=== PATIENT | female | born 1955 | race African-American/Black ===

== ENCOUNTER 2021-01-16 14:48 | Inpatient (IN) | payer MEDICARE, OTHER ==
[~2021-01-16] VITALS: Ht 167.6 cm; Wt 88.9 kg
[2021-01-16 16:21] LABS: HEMOGLOBIN. 15.1 g/dL (12.0-16.0); MEAN CORPUSCULAR HEMOGLOBIN 29.6 pg (28.0-32.0); MEAN PLATELET VOLUME 10.1 fl (7.4-10.4); PLATELET 180 x1000/uL (130-400); RED BLOOD CELL COUNT 5.11 mill/uL (4.2-5.4); RED CELL DISTRIBUTION WIDTH 15.6 % (11.6-14.6)
[2021-01-16 16:26] LABS: CHLORIDE 94 mEq/L (98-107)
[2021-01-16 16:30] LABS: INR 1.4; PROTHROMBIN TIME 14.2 sec (9.6-11.0)
[2021-01-16] MEDS ORDERED: SODIUM CHLORIDE 0.45% 1,000 ML IV SCH ×2 (16:30→19:30)
[2021-01-16] MEDS ORDERED: SODIUM CHLORIDE 0.9% 1,000 ML IV ONE (17:00)
[2021-01-16] MEDS ORDERED: PIPERACILLIN/TAZ 3.375G PREMIX 50 ML IV ONE (17:15)
[2021-01-16] MEDS ORDERED: PANTOPRAZOLE SODIUM 40 MG/VIAL IV ONE (17:15)
[2021-01-16] MEDS ORDERED: PHENYTOIN SODIUM 100MG/2ML VIAL IV ONE ×2 (17:30→17:59)
[2021-01-16 17:42] LABS: CLARITY URINE CLOUDY (CLEAR); COLOR URINE ORANGE (YELLOW); KETONES URINE TRACE (NEGATIVE); LEUKOCYTE ESTERASE URINE 1+ (NEGATIVE); NITRITE URINE POSITIVE (NEGATIVE); OCCULT BLOOD URINE NEGATIVE (NEGATIVE); PROTEIN URINE 1+ (NEGATIVE); SPECIFIC GRAVITY URINE 1.019 (1.005-1.030)
[2021-01-16 17:44] LABS: PLATELET ESTIMATE NORMAL
[2021-01-16] MEDS ORDERED: MORPHINE SULFATE 2 MG/ML CPJ (NOT FOR IM USE) IV PRN ×2 (17:45→19:00)
[2021-01-16] MEDS ORDERED: ONDANSETRON HCL 4MG/2ML INJ IV PRN (17:45)
[2021-01-16] MEDS ORDERED: PHENYTOIN SODIUM 300MG in SODIUM CHLORIDE 0.9% 50ML IV NR (18:00)
[2021-01-16] MEDS ORDERED: POTASSIUM CHLORIDE 40MEQ/20ML INJ IV ONE (19:04)
[2021-01-16] MEDS ORDERED: ALBUMIN HUMAN 25GM/100ML (25%) IV ONE (19:04)
[2021-01-16] MEDS ORDERED: MAGNESIUM SULFATE 5GM/10ML VIAL IV ONE (19:04)
[2021-01-16] MEDS ORDERED: SODIUM BICARBONATE 8.4% 1 MEQ/ML 50ML SYR IV ONE (19:05)
[2021-01-16] MEDS ORDERED: CALCIUM CHLORIDE 1GM/10ML SYR IV ONE (19:05)
[2021-01-16] MEDS ORDERED: DEXTROSE 50% WATER 50ML SYRINGE IV PRN ×2 (19:15→23:30)
[2021-01-16] MEDS ORDERED: PROPOFOL 200MG/20ML VIAL IV ONE (19:17)
[2021-01-16] MEDS ORDERED: ROCURONIUM BROMIDE 10MG/ML VIAL 5ML IV ONE (19:17)
[2021-01-16] MEDS ORDERED: DEXAMETHASONE 4MG/ML 1ML VIAL ONE (19:18)
[2021-01-16] MEDS ORDERED: DEXT 5%/0.45% NACL KCL 20MEQ/L 1,000 ML IV SCH (19:30)
[2021-01-16] MEDS ORDERED: POTASSIUM CHLORIDE INJ 40 MEQ in DEXT 5% WATER 250 ML IV ONE (20:00)
[2021-01-16 20:13] LABS: BG BASE EXCESS 0.1 mmol/L (-2.0-2.0); BG CARBOXYHEMOGLOBIN 0.7 % (0.5-1.5); BG DEOXYHEMOGLOBIN 11.4 % (0.0-5.0); BG FRACTION INSPIRED OXYGEN 100; BG METHEMOGLOBIN 0.4 % (0.0-1.5); BG OXYGEN SATURATION 88.5 % (92.0-98.5); BG OXYHEMOGLOBIN 87.5 % (94.0-97.0); BG PCO2 36.4 mmHg (35.0-45.0); BG PH 7.437 (7.350-7.450); BG PO2 57.3 mmHg (75.0-100.0); BG TOTAL HEMOGLOBIN 11.2 g/dL (12.0-18.0); BG VENT MODE VENT - AC
[2021-01-16] MEDS ORDERED: HYDROMORPHONE HCL/PF 2MG/ML CPJ IV PRN (20:30)
[2021-01-16] MEDS ORDERED: DOPAMINE 400MG/250ML PREMIX 250 ML IV PRN (20:45)
[2021-01-16] MEDS ORDERED: VASOPRESSIN 20 UNIT/ML 1ML ONE (20:53)
[2021-01-16] MEDS ORDERED: INSULIN LISPRO 100 UNITS/ML SUBCUT SCH (21:00)
[2021-01-16] MEDS ORDERED: BLOOD SUGAR DIAGNOSTIC STRIP TEST SCH (21:00)
[2021-01-16] MEDS ORDERED: LEVETIRACETAM 500MG PREMIX 100 ML IV SCH (21:00)
[2021-01-16 21:45] VITALS: BP 150/90
[2021-01-16] MEDS: PROPOFOL 10MG/ML 100ML 100 ML IV PRN (21:55)
[2021-01-16 22:00] VITALS: BP 153/79
[2021-01-16] MEDS ORDERED: PIPERACILLIN/TAZOBACTAM 3.375 G in DEXTROSE 5% WATER 50 ML IV SCH (22:00)
[2021-01-16 23:00] VITALS: BP 113/62
[2021-01-16 23:21] LABS: BASOPHILS % 0.1 % (0.0-2.0); HEMATOCRIT. 32.4 % (36.0-48.0); HEMOGLOBIN. 11.1 g/dL (12.0-16.0); LYMPHOCYTES % 10.7 % (20.0-50.0); MEAN CORPUSCULAR HEMOGLOBIN 30.1 pg (28.0-32.0); MEAN CORPUSCULAR VOLUME 87.5 fL (81.0-99.0); MEAN PLATELET VOLUME 10.2 fl (7.4-10.4); MONOCYTES % 4.2 % (2.0-8.0); PLATELET 124 x1000/uL (130-400); RED CELL DISTRIBUTION WIDTH 15.3 % (11.6-14.6)
[2021-01-16 23:58] VITALS: BP 150/90
[2021-01-17] VITALS (96 sets, daily range): BP systolic 73–131; BP diastolic 46–72
[2021-01-17] MEDS: BLOOD SUGAR DIAGNOSTIC STRIP TEST SCH ×4 (00:33→17:31)
[2021-01-17] MEDS: SODIUM CHL 0.45% + KCL 20MEQ/L 1,000 ML IV SCH ×2 (00:33→09:58)
[2021-01-17] MEDS: MIDAZOLAM HCL 100 MG in SODIUM CHLORIDE 0.9% 80 ML IV PRN (00:36)
[2021-01-17] MEDS: FENTANYL CITRATE/PF 2,500 MCG in SODIUM CHLORIDE 0.9% 200 ML IV PRN (00:37)
[2021-01-17] MEDS: PROPOFOL 10MG/ML 100ML 100 ML IV PRN (01:44)
[2021-01-17] MEDS: LEVETIRACETAM 500MG PREMIX 100 ML IV SCH ×3 (02:01→20:42)
[2021-01-17] MEDS ORDERED: HYDROMORPHONE HCL/PF 2MG/ML CPJ IV ONE (02:15)
[2021-01-17] MEDS: INSULIN LISPRO 100 UNITS/ML SUBCUT SCH ×4 (06:00→17:31)
[2021-01-17] MEDS ORDERED: DILANTIN (06:36)
[2021-01-17] MEDS ORDERED: ASPI-1406 PO (06:38)
[2021-01-17] MEDS ORDERED: BENA20TA10 PO (06:38)
[2021-01-17] MEDS ORDERED: SIMV-46 PO (06:39)
[2021-01-17 06:49] LABS: BASOPHILS % 0.1 % (0.0-2.0); EOSINOPHILS % 0.9 % (0.0-5.0); HEMATOCRIT. 35.1 % (36.0-48.0); LYMPHOCYTES % 7.8 % (20.0-50.0); MEAN CORPUSCULAR HEMOGLOBIN 29.6 pg (28.0-32.0); MEAN CORPUSCULAR VOLUME 86.4 fL (81.0-99.0); MEAN PLATELET VOLUME 10.4 fl (7.4-10.4); MONOCYTES % 6.1 % (2.0-8.0); NEUTROPHILS % 85.1 % (40.0-76.0); PLATELET 127 x1000/uL (130-400); RED BLOOD CELL COUNT 4.07 mill/uL (4.2-5.4); RED CELL DISTRIBUTION WIDTH 15.5 % (11.6-14.6)
[2021-01-17 07:04] LABS: CHLORIDE 106 mEq/L (98-107)
[2021-01-17 07:16] LABS: HDL CHOLESTEROL 11 mg/dL (40-59)
[2021-01-17 07:23] LABS: LDL CHOLESTEROL 8 mg/dL (5-100)
[2021-01-17] MEDS ORDERED: ENOXAPARIN 40MG/0.4ML SYR SUBCUT SCH (09:00)
[2021-01-17] MEDS ORDERED: PIPERACILLIN/TAZOBACTAM 3.375 G in DEXTROSE 5% WATER 50 ML IV SCH (09:00)
[2021-01-17 09:23] LABS: BG BASE EXCESS 1.6 mmol/L (-2.0-2.0); BG CARBOXYHEMOGLOBIN 0.3 % (0.5-1.5); BG DEOXYHEMOGLOBIN 0.9 % (0.0-5.0); BG FRACTION INSPIRED OXYGEN 60; BG HCO3 ACT 24.9 mmol/L (22.0-26.0); BG METHEMOGLOBIN 0.1 % (0.0-1.5); BG OXYGEN SATURATION 99.1 % (92.0-98.5); BG OXYHEMOGLOBIN 98.7 % (94.0-97.0); BG PCO2 34.8 mmHg (35.0-45.0); BG PH 7.473 (7.350-7.450); BG PO2 220.2 mmHg (75.0-100.0); BG SAMPLE SITE LEFT BRACHIAL; BG TOTAL HEMOGLOBIN 12.3 g/dL (12.0-18.0); BG VENT MODE VENT - AC
[2021-01-17] MEDS ORDERED: POTASSIUM CHLORIDE INJ 40 MEQ in DEXT 5% WATER 250 ML IV NR (10:00)
[2021-01-17] MEDS ORDERED: ALBUTEROL (0.5%) 2.5MG/0.5ML NEB HHN PRN (16:00)
[2021-01-17] MEDS ORDERED: ALBUTEROL (0.083%) 2.5MG/3ML NEB HHN PRN (16:00)
[2021-01-17] MEDS ORDERED: NALOXONE HCL 0.4MG/ML VIAL IV PRN (17:30)
[2021-01-17] MEDS: PIPERACILLIN/TAZOBACTAM 3.375 G in DEXTROSE 5% WATER 50 ML IV SCH (17:31)
[2021-01-17] MEDS ORDERED: DEXT 5%/0.9% NACL 1,000 ML IV SCH (20:00)
[2021-01-17] MEDS ORDERED: KCL 20MEQ/100ML PREMIX 100 ML IV NR (20:00)
[2021-01-18] VITALS (87 sets, daily range): BP systolic 69–137; BP diastolic 34–67
[2021-01-18] MEDS: ALBUTEROL (0.083%) 2.5MG/3ML NEB HHN SCH ×3 (00:20→20:21)
[2021-01-18] MEDS: PIPERACILLIN/TAZOBACTAM 3.375 G in DEXTROSE 5% WATER 50 ML IV SCH ×3 (05:43→22:30)
[2021-01-18] MEDS: MIDAZOLAM HCL 100 MG in SODIUM CHLORIDE 0.9% 80 ML IV PRN ×2 (05:44→10:30)
[2021-01-18] MEDS: BLOOD SUGAR DIAGNOSTIC STRIP TEST SCH ×4 (06:00→17:30)
[2021-01-18] MEDS: INSULIN LISPRO 100 UNITS/ML SUBCUT SCH ×4 (06:00→17:30)
[2021-01-18 07:44] LABS: BASOPHILS % 0.3 % (0.0-2.0); EOSINOPHILS % 0.5 % (0.0-5.0); HEMATOCRIT. 34.1 % (36.0-48.0); HEMOGLOBIN. 11.4 g/dL (12.0-16.0); LYMPHOCYTES % 7.3 % (20.0-50.0); MEAN CORPUSCULAR HEMOGLOBIN 29.4 pg (28.0-32.0); MEAN CORPUSCULAR VOLUME 88.2 fL (81.0-99.0); MEAN PLATELET VOLUME 10.5 fl (7.4-10.4); MONOCYTES % 7.3 % (2.0-8.0); NEUTROPHILS % 84.6 % (40.0-76.0); PLATELET 141 x1000/uL (130-400); RED BLOOD CELL COUNT 3.87 mill/uL (4.2-5.4); RED CELL DISTRIBUTION WIDTH 15.7 % (11.6-14.6)
[2021-01-18] MEDS: ENOXAPARIN 30MG/0.3ML SYR SUBCUT SCH ×2 (08:15→20:21)
[2021-01-18] MEDS: LEVETIRACETAM 500MG PREMIX 100 ML IV SCH ×2 (08:15→20:21)
[2021-01-18 08:59] LABS: BG BASE EXCESS 5.8 mmol/L (-2.0-2.0); BG CARBOXYHEMOGLOBIN 0.3 % (0.5-1.5); BG DEOXYHEMOGLOBIN 1.6 % (0.0-5.0); BG FRACTION INSPIRED OXYGEN 45; BG HCO3 ACT 30.1 mmol/L (22.0-26.0); BG METHEMOGLOBIN 0.3 % (0.0-1.5); BG OXYGEN SATURATION 98.4 % (92.0-98.5); BG OXYHEMOGLOBIN 97.8 % (94.0-97.0); BG PCO2 42.4 mmHg (35.0-45.0); BG PH 7.469 (7.350-7.450); BG PO2 135.4 mmHg (75.0-100.0); BG SAMPLE SITE RIGHT RADIAL; BG TOTAL HEMOGLOBIN 11.2 g/dL (12.0-18.0); BG VENT MODE VENT - AC
[2021-01-18 09:08] LABS: CHLORIDE 112 mEq/L (98-107)
[2021-01-18] MEDS: FENTANYL CITRATE/PF 2,500 MCG in SODIUM CHLORIDE 0.9% 200 ML IV PRN (10:30)
[2021-01-18] MEDS: DEXTROSE 5% WATER 1,000 ML IV SCH (12:46)
[2021-01-18] MEDS: PANTOPRAZOLE SODIUM 40 MG/VIAL IV SCH (16:08)
[2021-01-19] VITALS (65 sets, daily range): BP systolic 95–173; BP diastolic 44–95
[2021-01-19] MEDS: ALBUTEROL (0.083%) 2.5MG/3ML NEB HHN SCH ×4 (00:54→20:21)
[2021-01-19] MEDS: DEXTROSE 5% WATER 1,000 ML IV SCH ×2 (01:48→15:04)
[2021-01-19] MEDS: MORPHINE SULFATE 2 MG/ML CPJ (NOT FOR IM USE) IV PRN ×3 (02:24→21:42)
[2021-01-19] MEDS: PIPERACILLIN/TAZOBACTAM 3.375 G in DEXTROSE 5% WATER 50 ML IV SCH ×3 (05:22→21:42)
[2021-01-19] MEDS: INSULIN LISPRO 100 UNITS/ML SUBCUT SCH ×4 (05:22→17:51)
[2021-01-19] MEDS: BLOOD SUGAR DIAGNOSTIC STRIP TEST SCH ×4 (05:22→17:51)
[2021-01-19 05:52] LABS: HEMATOCRIT. 31.5 % (36.0-48.0); HEMOGLOBIN. 10.7 g/dL (12.0-16.0); MEAN CORPUSCULAR HEMOGLOBIN 29.8 pg (28.0-32.0); MEAN CORPUSCULAR VOLUME 88.1 fL (81.0-99.0); MEAN PLATELET VOLUME 10.7 fl (7.4-10.4); PLATELET 162 x1000/uL (130-400); RED BLOOD CELL COUNT 3.58 mill/uL (4.2-5.4); RED CELL DISTRIBUTION WIDTH 15.5 % (11.6-14.6)
[2021-01-19 05:56] LABS: CHLORIDE 113 mEq/L (98-107)
[2021-01-19 06:01] LABS: PHOSPHORUS 1.6 mg/dL (2.5-4.9)
[2021-01-19] MEDS: PANTOPRAZOLE SODIUM 40 MG/VIAL IV SCH (08:20)
[2021-01-19] MEDS: LEVETIRACETAM 500MG PREMIX 100 ML IV SCH ×2 (08:20→20:03)
[2021-01-19] MEDS: ENOXAPARIN 30MG/0.3ML SYR SUBCUT SCH ×2 (08:20→20:03)
[2021-01-19] MEDS ORDERED: POTASSIUM PHOS,M-BASIC-D-BASIC 20 MMOL in DEXT 5% WATER 243.3333 ML IV NR (09:00)
[2021-01-19 10:58] LABS: BG BASE EXCESS 6.8 mmol/L (-2.0-2.0); BG CARBOXYHEMOGLOBIN 0.1 % (0.5-1.5); BG DEOXYHEMOGLOBIN 2.3 % (0.0-5.0); BG FRACTION INSPIRED OXYGEN 35; BG HCO3 ACT 30.6 mmol/L (22.0-26.0); BG METHEMOGLOBIN 0.4 % (0.0-1.5); BG OXYGEN SATURATION 97.7 % (92.0-98.5); BG OXYHEMOGLOBIN 97.2 % (94.0-97.0); BG PCO2 40.4 mmHg (35.0-45.0); BG PH 7.497 (7.350-7.450); BG PO2 102.2 mmHg (75.0-100.0); BG SAMPLE SITE RIGHT RADIAL; BG TOTAL HEMOGLOBIN 11.2 g/dL (12.0-18.0); BG TOTAL RESPIRATORY RATE 14 b/min; BG VENT MODE VENT - AC
[2021-01-19 12:39] LABS: PLATELET ESTIMATE NORMAL
[2021-01-19] MEDS ORDERED: POTASSIUM CHLORIDE INJ 40 MEQ in DEXT 5% WATER 250 ML IV NR (13:00)
[2021-01-19 13:43] LABS: BG BASE EXCESS 7.4 mmol/L (-2.0-2.0); BG CARBOXYHEMOGLOBIN 0.2 % (0.5-1.5); BG DEOXYHEMOGLOBIN 2.2 % (0.0-5.0); BG FRACTION INSPIRED OXYGEN 100; BG HCO3 ACT 32.6 mmol/L (22.0-26.0); BG METHEMOGLOBIN 0.4 % (0.0-1.5); BG OXYGEN SATURATION 97.8 % (92.0-98.5); BG OXYHEMOGLOBIN 97.2 % (94.0-97.0); BG PCO2 48.6 mmHg (35.0-45.0); BG PH 7.444 (7.350-7.450); BG PO2 107.2 mmHg (75.0-100.0); BG SAMPLE SITE RIGHT RADIAL; BG TOTAL HEMOGLOBIN 11.4 g/dL (12.0-18.0); BG VENT MODE VENT - CPAP
[2021-01-19] MEDS: RACEPINEPHRINE 2.25% 0.5ML NEB VIAL HHN PRN ×2 (16:30→20:22)
[2021-01-19] MEDS ORDERED: METHYLPREDNISOLONE SOD SUCC 125 MG/2 ML VIAL IV NR (17:30)
[2021-01-19 17:43] LABS: BG CARBOXYHEMOGLOBIN 0.5 % (0.5-1.5); BG DEOXYHEMOGLOBIN 3.5 % (0.0-5.0); BG HCO3 ACT 28.5 mmol/L (22.0-26.0); BG METHEMOGLOBIN 0.5 % (0.0-1.5); BG OXYGEN SATURATION 96.5 % (92.0-98.5); BG OXYHEMOGLOBIN 95.5 % (94.0-97.0); BG PCO2 42.6 mmHg (35.0-45.0); BG PH 7.444 (7.350-7.450); BG PO2 86.6 mmHg (75.0-100.0); BG SAMPLE SITE RIGHT RADIAL; BG TOTAL HEMOGLOBIN 12.3 g/dL (12.0-18.0); BG VENT MODE COOL AEROSOL
[2021-01-19] MEDS: NICOTINE 21MG PATCH TD SCH (21:42)
[2021-01-20] VITALS (48 sets, daily range): BP systolic 107–172; BP diastolic 52–88
[2021-01-20] MEDS: INSULIN LISPRO 100 UNITS/ML SUBCUT SCH ×5 (00:27→23:57)
[2021-01-20] MEDS: MORPHINE SULFATE 2 MG/ML CPJ (NOT FOR IM USE) IV PRN ×4 (01:21→23:22)
[2021-01-20] MEDS: ALBUTEROL (0.083%) 2.5MG/3ML NEB HHN SCH ×4 (01:56→20:24)
[2021-01-20] MEDS: RACEPINEPHRINE 2.25% 0.5ML NEB VIAL HHN PRN ×2 (02:24→13:48)
[2021-01-20] MEDS: DEXTROSE 5% WATER 1,000 ML IV SCH ×2 (05:16→17:45)
[2021-01-20] MEDS: BLOOD SUGAR DIAGNOSTIC STRIP TEST SCH ×5 (05:30→23:21)
[2021-01-20] MEDS: PIPERACILLIN/TAZOBACTAM 3.375 G in DEXTROSE 5% WATER 50 ML IV SCH ×3 (05:30→22:03)
[2021-01-20 06:07] LABS: BG CARBOXYHEMOGLOBIN 0.5 % (0.5-1.5); BG DEOXYHEMOGLOBIN 4.9 % (0.0-5.0); BG FRACTION INSPIRED OXYGEN 28; BG HCO3 ACT 31.3 mmol/L (22.0-26.0); BG METHEMOGLOBIN 0.1 % (0.0-1.5); BG OXYGEN SATURATION 95.1 % (92.0-98.5); BG OXYHEMOGLOBIN 94.5 % (94.0-97.0); BG PCO2 43.5 mmHg (35.0-45.0); BG PH 7.475 (7.350-7.450); BG PO2 75.5 mmHg (75.0-100.0); BG SAMPLE SITE LEFT BRACHIAL; BG TOTAL HEMOGLOBIN 11.7 g/dL (12.0-18.0); BG VENT MODE COOL AEROSOL
[2021-01-20 06:30] LABS: HEMATOCRIT. 32.9 % (36.0-48.0); MEAN CORPUSCULAR HEMOGLOBIN 29.5 pg (28.0-32.0); MEAN CORPUSCULAR VOLUME 88.4 fL (81.0-99.0); PLATELET 151 x1000/uL (130-400); RED BLOOD CELL COUNT 3.72 mill/uL (4.2-5.4); RED CELL DISTRIBUTION WIDTH 15.7 % (11.6-14.6)
[2021-01-20 07:15] LABS: CHLORIDE 110 mEq/L (98-107)
[2021-01-20] MEDS: PANTOPRAZOLE SODIUM 40 MG/VIAL IV SCH (09:03)
[2021-01-20] MEDS: ENOXAPARIN 30MG/0.3ML SYR SUBCUT SCH ×2 (09:04→20:35)
[2021-01-20] MEDS: LEVETIRACETAM 500MG PREMIX 100 ML IV SCH ×2 (09:04→20:35)
[2021-01-20 16:37] LABS: PLATELET ESTIMATE NORMAL
[2021-01-20] MEDS ORDERED: HYDRALAZINE 20MG/ML VIAL IV PRN (20:30)
[2021-01-20] MEDS ORDERED: HALOPERIDOL LACTATE 5MG/ML VIAL IM PRN ×2 (22:00)
[2021-01-20] MEDS: NICOTINE 21MG PATCH TD SCH (22:03)
[2021-01-20] MEDS ORDERED: POTASSIUM PHOS,M-BASIC-D-BASIC 15 MMOL in DEXT 5% WATER 245 ML IV NR (23:00)
[2021-01-21] VITALS (43 sets, daily range): BP systolic 113–181; BP diastolic 47–114
[2021-01-21] MEDS: ALBUTEROL (0.083%) 2.5MG/3ML NEB HHN SCH ×4 (00:27→20:00)
[2021-01-21] MEDS: PIPERACILLIN/TAZOBACTAM 3.375 G in DEXTROSE 5% WATER 50 ML IV SCH ×3 (05:08→22:10)
[2021-01-21] MEDS: INSULIN LISPRO 100 UNITS/ML SUBCUT SCH ×3 (05:09→18:00)
[2021-01-21] MEDS: BLOOD SUGAR DIAGNOSTIC STRIP TEST SCH ×4 (05:09→23:57)
[2021-01-21 05:34] LABS: MEAN CORPUSCULAR HEMOGLOBIN 29.3 pg (28.0-32.0); MEAN CORPUSCULAR VOLUME 87.6 fL (81.0-99.0); MEAN PLATELET VOLUME 9.8 fl (7.4-10.4); PLATELET 152 x1000/uL (130-400); RED BLOOD CELL COUNT 3.77 mill/uL (4.2-5.4); RED CELL DISTRIBUTION WIDTH 15.5 % (11.6-14.6)
[2021-01-21 05:46] LABS: CHLORIDE 109 mEq/L (98-107)
[2021-01-21] MEDS: DEXTROSE 5% WATER 1,000 ML IV SCH ×2 (05:50→20:44)
[2021-01-21 05:54] LABS: PHOSPHORUS 2.6 mg/dL (2.5-4.9)
[2021-01-21] MEDS ORDERED: MAGNESIUM 1 G PREMIX 100 ML IV SCH (08:00)
[2021-01-21] MEDS ORDERED: POTASSIUM CHLORIDE INJ 40 MEQ in DEXT 5% WATER 250 ML IV SCH (09:00)
[2021-01-21] MEDS: LEVETIRACETAM 500MG PREMIX 100 ML IV SCH ×2 (09:53→20:45)
[2021-01-21] MEDS: ENOXAPARIN 30MG/0.3ML SYR SUBCUT SCH ×2 (09:54→20:44)
[2021-01-21] MEDS: PANTOPRAZOLE SODIUM 40 MG/VIAL IV SCH (09:54)
[2021-01-21] MEDS: POTASSIUM CHLORIDE INJ 40 MEQ in DEXT 5% WATER 250 ML IV SCH ×2 (10:23→16:58)
[2021-01-21 10:33] LABS: PLATELET ESTIMATE NORMAL
[2021-01-21] MEDS: RACEPINEPHRINE 2.25% 0.5ML NEB VIAL HHN PRN (11:18)
[2021-01-21] MEDS: TOTAL PARENTERAL NUTRITION 2,000 ML IV SCH (20:52)
[2021-01-21] MEDS ORDERED: KCL 10MEQ/50ML PREMIX 200 ML IV PRN (21:00)
[2021-01-21] MEDS: NICOTINE 21MG PATCH TD SCH (22:10)
[2021-01-22] VITALS (27 sets, daily range): BP systolic 109–151; BP diastolic 42–89
[2021-01-22] MEDS: INSULIN LISPRO 100 UNITS/ML SUBCUT SCH ×4 (00:07→18:25)
[2021-01-22] MEDS: ALBUTEROL (0.083%) 2.5MG/3ML NEB HHN SCH ×3 (00:35→20:38)
[2021-01-22] MEDS: BLOOD SUGAR DIAGNOSTIC STRIP TEST SCH ×3 (05:38→18:24)
[2021-01-22 07:31] LABS: BASOPHILS % 0.3 % (0.0-2.0); EOSINOPHILS % 0.3 % (0.0-5.0); HEMOGLOBIN. 10.7 g/dL (12.0-16.0); LYMPHOCYTES % 7.5 % (20.0-50.0); MEAN CORPUSCULAR HEMOGLOBIN 29.1 pg (28.0-32.0); MEAN CORPUSCULAR VOLUME 86.9 fL (81.0-99.0); MEAN PLATELET VOLUME 10.1 fl (7.4-10.4); MONOCYTES % 6.9 % (2.0-8.0); PLATELET 150 x1000/uL (130-400); RED BLOOD CELL COUNT 3.68 mill/uL (4.2-5.4)
[2021-01-22 07:42] LABS: INR 1.7; PROTHROMBIN TIME 17.4 sec (9.6-11.0)
[2021-01-22 07:54] LABS: CHLORIDE 112 mEq/L (98-107)
[2021-01-22 08:01] LABS: PHOSPHORUS 1.9 mg/dL (2.5-4.9)
[2021-01-22 08:06] LABS: HEPATITIS B SURFACE ANTIGEN NEGATIVE
[2021-01-22] MEDS: PANTOPRAZOLE SODIUM 40 MG/VIAL IV SCH (08:06)
[2021-01-22] MEDS: LEVETIRACETAM 500MG PREMIX 100 ML IV SCH ×2 (08:06→21:42)
[2021-01-22] MEDS: ENOXAPARIN 30MG/0.3ML SYR SUBCUT SCH ×2 (09:06→20:30)
[2021-01-22] MEDS ORDERED: PHYTONADIONE 10MG/ML AMP SUBCUT NR (15:15)
[2021-01-22] MEDS ORDERED: KCL 20MEQ/100ML PREMIX 100 ML IV ONE (15:15)
[2021-01-22] MEDS ORDERED: POTASSIUM PHOS,M-BASIC-D-BASIC 10 MMOL in DEXT 5% WATER 246.6667 ML IV NR (16:30)
[2021-01-22] MEDS: TOTAL PARENTERAL NUTRITION 2,000 ML IV SCH (20:13)
[2021-01-22] MEDS ORDERED: FAT EMULSIONS 500 ML IV SCH (21:00)
[2021-01-22] MEDS: NICOTINE 21MG PATCH TD SCH (21:43)
[2021-01-22] MEDS: MORPHINE SULFATE 2 MG/ML CPJ (NOT FOR IM USE) IV PRN (22:44)
[2021-01-22] MEDS ORDERED: NALOXONE HCL 0.4MG/ML VIAL IV PRN (22:45)
[2021-01-23] VITALS (12 sets, daily range): BP systolic 120–141; BP diastolic 53–69
[2021-01-23] MEDS: BLOOD SUGAR DIAGNOSTIC STRIP TEST SCH ×5 (00:19→23:27)
[2021-01-23] MEDS: INSULIN LISPRO 100 UNITS/ML SUBCUT SCH ×5 (00:25→23:27)
[2021-01-23] MEDS: ALBUTEROL (0.083%) 2.5MG/3ML NEB HHN SCH ×4 (02:17→21:37)
[2021-01-23 06:41] LABS: BASOPHILS % 0.2 % (0.0-2.0); EOSINOPHILS % 0.5 % (0.0-5.0); HEMATOCRIT. 34.5 % (36.0-48.0); HEMOGLOBIN. 11.3 g/dL (12.0-16.0); MEAN CORPUSCULAR VOLUME 88.7 fL (81.0-99.0); MEAN PLATELET VOLUME 10.5 fl (7.4-10.4); MONOCYTES % 5.3 % (2.0-8.0); PLATELET 143 x1000/uL (130-400); RED BLOOD CELL COUNT 3.89 mill/uL (4.2-5.4); RED CELL DISTRIBUTION WIDTH 16.1 % (11.6-14.6)
[2021-01-23 07:22] LABS: CHLORIDE 111 mEq/L (98-107)
[2021-01-23 07:34] LABS: PHOSPHORUS 2.8 mg/dL (2.5-4.9)
[2021-01-23] MEDS: LEVETIRACETAM 500MG PREMIX 100 ML IV SCH ×2 (08:25→20:44)
[2021-01-23] MEDS: PANTOPRAZOLE SODIUM 40 MG/VIAL IV SCH (08:25)
[2021-01-23] MEDS: ENOXAPARIN 30MG/0.3ML SYR SUBCUT SCH (08:25)
[2021-01-23] MEDS ORDERED: POTASSIUM CHLORIDE INJ 40 MEQ in DEXT 5% WATER 250 ML IV NR (10:30)
[2021-01-23] MEDS: MORPHINE SULFATE 2 MG/ML CPJ (NOT FOR IM USE) IV PRN (14:58)
[2021-01-23] MEDS: TOTAL PARENTERAL NUTRITION 2,000 ML IV SCH (20:46)
[2021-01-23] MEDS: NICOTINE 21MG PATCH TD SCH (23:17)
[2021-01-24] VITALS (13 sets, daily range): BP systolic 120–145; BP diastolic 62–76
[2021-01-24] MEDS: ALBUTEROL (0.083%) 2.5MG/3ML NEB HHN SCH ×4 (01:03→20:31)
[2021-01-24] MEDS: MORPHINE SULFATE 2 MG/ML CPJ (NOT FOR IM USE) IV PRN ×2 (01:34→12:11)
[2021-01-24] MEDS: BLOOD SUGAR DIAGNOSTIC STRIP TEST SCH ×3 (06:22→18:00)
[2021-01-24] MEDS: INSULIN LISPRO 100 UNITS/ML SUBCUT SCH ×3 (06:23→18:23)
[2021-01-24 07:44] LABS: HEMATOCRIT 36.2 % (36.0-48.0); HEMOGLOBIN 11.8 g/dL (12.0-16.0); MEAN CORPUSCULAR HEMOGLOBIN 28.9 pg (28.0-32.0); MEAN CORPUSCULAR VOLUME 88.4 fL (81.0-99.0); PLATELET 154 x1000/uL (130-400); RED BLOOD CELL COUNT 4.09 mill/uL (4.2-5.4); RED CELL DISTRIBUTION WIDTH 15.9 % (11.6-14.6)
[2021-01-24 08:01] LABS: CHLORIDE 112 mEq/L (98-107)
[2021-01-24] MEDS: LEVETIRACETAM 500MG PREMIX 100 ML IV SCH ×2 (08:18→20:42)
[2021-01-24] MEDS: PANTOPRAZOLE SODIUM 40 MG/VIAL IV SCH (08:18)
[2021-01-24] MEDS: ENOXAPARIN 40MG/0.4ML SYR SUBCUT SCH (08:19)
[2021-01-24] MEDS ORDERED: POTASSIUM CHLORIDE INJ 40 MEQ in DEXT 5% WATER 250 ML IV SCH (13:00)
[2021-01-24] MEDS: TOTAL PARENTERAL NUTRITION 2,000 ML IV SCH (20:41)
[2021-01-24] MEDS: NICOTINE 21MG PATCH TD SCH (21:47)
[2021-01-25] VITALS (10 sets, daily range): BP systolic 117–153; BP diastolic 59–97
[2021-01-25] MEDS: BLOOD SUGAR DIAGNOSTIC STRIP TEST SCH ×5 (00:23→23:39)
[2021-01-25] MEDS: ALBUTEROL (0.083%) 2.5MG/3ML NEB HHN SCH ×3 (00:30→11:52)
[2021-01-25] MEDS: INSULIN LISPRO 100 UNITS/ML SUBCUT SCH ×5 (00:37→23:38)
[2021-01-25 06:41] LABS: HEMOGLOBIN. 12.7 g/dL (12.0-16.0); MEAN CORPUSCULAR HEMOGLOBIN 28.7 pg (28.0-32.0); MEAN CORPUSCULAR VOLUME 93.1 fL (81.0-99.0); MEAN PLATELET VOLUME 11.2 fl (7.4-10.4); PLATELET 142 x1000/uL (130-400); RED BLOOD CELL COUNT 4.41 mill/uL (4.2-5.4); RED CELL DISTRIBUTION WIDTH 16.3 % (11.6-14.6)
[2021-01-25 07:50] LABS: CHLORIDE 115 mEq/L (98-107)
[2021-01-25 08:05] LABS: PHOSPHORUS 2.7 mg/dL (2.5-4.9)
[2021-01-25] MEDS ORDERED: PHYTONADIONE 10MG/ML AMP SUBCUT SCH (09:00)
[2021-01-25] MEDS: PANTOPRAZOLE SODIUM 40 MG/VIAL IV SCH (09:25)
[2021-01-25] MEDS: LEVETIRACETAM 500MG PREMIX 100 ML IV SCH ×2 (09:25→21:45)
[2021-01-25] MEDS: ENOXAPARIN 40MG/0.4ML SYR SUBCUT SCH (09:25)
[2021-01-25 15:48] LABS: PLATELET ESTIMATE NORMAL
[2021-01-25] MEDS: MORPHINE SULFATE 2 MG/ML CPJ (NOT FOR IM USE) IV PRN (21:42)
[2021-01-25] MEDS: TOTAL PARENTERAL NUTRITION 2,000 ML IV SCH (21:42)
[2021-01-25] MEDS: NICOTINE 21MG PATCH TD SCH (23:37)
[2021-01-26] VITALS (12 sets, daily range): BP systolic 103–138; BP diastolic 56–72
[2021-01-26] MEDS: MORPHINE SULFATE 2 MG/ML CPJ (NOT FOR IM USE) IV PRN ×3 (05:03→22:11)
[2021-01-26] MEDS: INSULIN LISPRO 100 UNITS/ML SUBCUT SCH ×3 (05:09→18:12)
[2021-01-26] MEDS: BLOOD SUGAR DIAGNOSTIC STRIP TEST SCH ×3 (05:09→17:28)
[2021-01-26] MEDS: ENOXAPARIN 40MG/0.4ML SYR SUBCUT SCH (08:32)
[2021-01-26] MEDS: PANTOPRAZOLE SODIUM 40 MG/VIAL IV SCH (08:32)
[2021-01-26] MEDS: LEVETIRACETAM 500MG PREMIX 100 ML IV SCH ×2 (08:32→20:10)
[2021-01-26] MEDS: LACTULOSE 20G/30ML UDC PO SCH ×2 (08:33→17:28)
[2021-01-26 10:43] LABS: HEMATOCRIT 37.4 % (36.0-48.0); MEAN CORPUSCULAR HEMOGLOBIN 28.8 pg (28.0-32.0); MEAN CORPUSCULAR VOLUME 89.8 fL (81.0-99.0); PLATELET 168 x1000/uL (130-400); RED BLOOD CELL COUNT 4.17 mill/uL (4.2-5.4); RED CELL DISTRIBUTION WIDTH 15.6 % (11.6-14.6)
[2021-01-26 10:49] LABS: CHLORIDE 111 mEq/L (98-107)
[2021-01-26] MEDS: TOTAL PARENTERAL NUTRITION 2,000 ML IV SCH (20:11)
[2021-01-26] MEDS: NICOTINE 21MG PATCH TD SCH (22:10)
[2021-01-27] VITALS (13 sets, daily range): BP systolic 96–142; BP diastolic 42–89
[2021-01-27] MEDS: LACTULOSE 20G/30ML UDC PO SCH (00:11)
[2021-01-27] MEDS: INSULIN LISPRO 100 UNITS/ML SUBCUT SCH ×4 (00:12→17:05)
[2021-01-27] MEDS: MORPHINE SULFATE 2 MG/ML CPJ (NOT FOR IM USE) IV PRN (03:36)
[2021-01-27] MEDS: BLOOD SUGAR DIAGNOSTIC STRIP TEST SCH ×5 (06:06→17:02)
[2021-01-27] MEDS: PANTOPRAZOLE SODIUM 40 MG/VIAL IV SCH (09:27)
[2021-01-27] MEDS: LEVETIRACETAM 500MG PREMIX 100 ML IV SCH (09:27)
[2021-01-27] MEDS: ENOXAPARIN 40MG/0.4ML SYR SUBCUT SCH (09:28)
[2021-01-27] MEDS ORDERED: DEXTROSE 50% WATER 50ML SYRINGE IV PRN (13:00)
[2021-01-27] MEDS ORDERED: BLOOD SUGAR DIAGNOSTIC STRIP TEST SCH (16:50)
[2021-01-27] MEDS ORDERED: INSULIN LISPRO 100 UNITS/ML SUBCUT SCH (17:20)
== END 2021-01-27 23:15 | DRG 853 ==
LOC: ER 14:48 → CVICU 17:46 → EDBEDREQSVC 18:11 → EDBEDREQ 18:11 → ENRESERV 20:38 → 3WST 01-22 14:14
PROVIDERS: ADMIT Family Medicine; ATTEND Family Medicine
PROC: 0D1B0Z4 Bypass Ileum to Cutaneous, Open Approach (ICD-10-PCS; principal; 2021-01-16)
PROC: 0DTE0ZZ Resection of Large Intestine, Open Approach (ICD-10-PCS; 2021-01-16)
PROC: 5A1945Z Respiratory Ventilation, 24-96 Consecutive Hours (ICD-10-PCS; 2021-01-16)
DX: A41.9 Sepsis, unspecified organism (principal); K35.32 Acute appendicitis with perforation, localized peritonitis, and gangrene, without abscess; E43 Unspecified severe protein-calorie malnutrition; J96.00 Acute respiratory failure, unspecified whether with hypoxia or hypercapnia; K72.00 Acute and subacute hepatic failure without coma; N17.0 Acute kidney failure with tubular necrosis; D68.9 Coagulation defect, unspecified; J98.11 Atelectasis; K59.39 Other megacolon; E72.20 Disorder of urea cycle metabolism, unspecified; K56.41 Fecal impaction; E11.9 Type 2 diabetes mellitus without complications; E78.00 Pure hypercholesterolemia, unspecified; E78.5 Hyperlipidemia, unspecified; E87.6 Hypokalemia; F17.200 Nicotine dependence, unspecified, uncomplicated; G40.909 Epilepsy, unspecified, not intractable, without status epilepticus; Z20.822 Contact with and (suspected) exposure to COVID-19; J44.9 Chronic obstructive pulmonary disease, unspecified; D64.9 Anemia, unspecified; F17.210 Nicotine dependence, cigarettes, uncomplicated; I25.10 Atherosclerotic heart disease of native coronary artery without angina pectoris; R65.20 Severe sepsis without septic shock; Z79.82 Long term (current) use of aspirin; Z79.899 Other long term (current) drug therapy; Z68.31 Body mass index [BMI] 31.0-31.9, adult; I11.9 Hypertensive heart disease without heart failure
CPT/HCPCS: 36415; 36600; 71045; 74176; 80048; 80053; 80061; 80076; 81003; 82140; 82248; 82375; 82805; 82962; 83036; 83735; 84100; 84132; 84478; 84484; 85025; 85027; 86705; 86709; 86803; 87070; 87340; 87426; 88307; 92610; 93005; 93970; 94003; 94640; 97110; 97162; 97167; 97530; 97535; 99291; C9113; J0360; J1100; J1165; J1265; J1630; J1650; J1815; J1953; J2250; J2270; J2543; J2704; J2930; J3010; J3430; J3475; J3480; J3490; J7030; J7042; J7050; J7060; J7070; P9047